=== PATIENT | male | born 1950 | race Caucasian/White ===

== ENCOUNTER 2016-10-19 09:03 | Emergency (ER) | payer MEDICARE, OTHER ==
[~2016-10-19] VITALS: Ht 193 cm; Wt 95.5 kg
[~2016-10-19 09:03] MED LIST: AMLO10TA3 PO; ATOR20TA PO; Aspirin-Expunged Drug, Do Not Renew! PO; CHOL10008 PO; HYDR-3797 PO; LISI10TA PO; MULT-1018 PO; OXYC-466 PO; OXYC5TAB72 PO; RANI150C4 PO
[2016-10-19 09:09] VITALS: BP 123/75; RESP 14; O2SAT 98
--- NOTE | 2016-10-19 09:19 | ED.REPORT ---
HPI-Facial Injury Date of Service Oct 19, 2016 ED Provider: Dr. Mejias 66 y/o male on Aspirin with a hx of HTN presents to the ED complaining of intermittent epistaxis every hour for the last 4 days. The pt has been swallowing blood. He went to urgent care yesterday, where he was given Afrin and a rhinorocket that he sneezed out. In the ED, the pt has a Kleenex in his nose and is not currently bleeding. He has an appointment with ENT in three days but could not tolerate the sx so came to the ED instead. The pt is not taking any antibiotics and did not take Aspirin this morning. Nursing Notes Stated Complaint: NOSE BLEED/ BLOOD THINNERS Chief Complaint: ENT & Mouth Nursing Notes Reviewed: Yes Allergies: Coded Allergies: NSAIDS (Non-Steroidal Anti-Inflamma (Verified Adverse Reaction, Severe, Only has one kidney -- impaired renal function, 08/19/15) Scheduled ([Aspirin-Expunged Drug, Do Not Renew!]) 325 MG TABLET 325 MG PO BID Take twice a day for 6 weeks after surgery Amlodipine (Amlodipine) 10 Mg Tablet 10 MG PO DAILY Atorvastatin (Lipitor) 20 Mg Tablet 20 MG PO DAILY Cholecalciferol (Vitamin D3) (Vitamin D3) 1,000 Unit Tab.chew 1,000 UNIT PO DAILY Lisinopril (Lisinopril) 10 Mg Tablet 10 MG PO DAILY Multivitamin (Multi Vitamin Daily) 1 Each Tablet 1 EACH PO DAILY Ranitidine (Ranitidine) 150 Mg Capsule 150 MG PO BID Scheduled PRN Hydroxyzine Pamoate (HydrOXYzine Pamoate) 25 Mg Capsule 25 MG PO Q4H PRN PRN For Spasm and/or Restlessness oxyCODONE (oxyCODONE) 5 Mg Tablet 5-10 MG PO Q4H PRN PRN For Severe Pain oxyCODONE-Acetaminophen 10-325 mg (oxyCODONE-Acetaminophen 10-325 mg) 1 Each Tablet 1-2 TAB PO Q4H PRN PRN For Pain General Time Seen by Provider: 09:19 Chief Complaint Other (epistaxis) Hx Obtained From: Patient Arrived By: Walk-in Onset Occurred: 4 days ago Symptom Duration: Intermittent Progression Since Onset: Unchanged Severity: Current: No pain currently Severity: Maximum: No pain Recent Healthcare: Recent doctor visit Similar Sx Previous: No Past Medical History Past Medical History Arhtritis Reports: GERD, Hyperlipidemia, Hypertension Past Surgical History arthroscopic surgery to the knee nephrectomy Smoking History Current Every Day Smoker Ambulatory Status Independent Review of Systems Ears / Nose / Throat: Reports: Nose bleeding Complete sys rev & neg: except as marked. Physical Exam Initial Vital Signs Vital Signs (First) Date Time Temp Pulse Resp B/P Pulse Ox O2 Delivery O2 Flow Rate FiO2 10/19/16 09:09 36.9 80 14 123/75 98 Room Air Initial VS: Reviewed Respiratory: No respiratory distress Cardiovascular: Regular rate & rhythm Extremities: Vascular intact, Neuro intact, No swelling, No tenderness Skin: Warm, Dry, No cyanosis Head / Eyes: Atraumatic, Normocephalic ENT: Atraumatic, Airway patent, Mucous membranes moist Kleenex in left nare and nasal bridge across. No active bleeding when removed. No blood in oropharynx. Neck: Atraumatic, Supple, Full range of motion Neurologic: Oriented X3, Speech NL, No motor deficits, No sensory deficits General/Constitutional: Awake, Alert Re-Eval/Medical Decision Med Decision/Clinical Course Med Decision/Clinical Course: Patient declined nasal packing. No active bleeding in the ER. Return and follow-up precautions given. Re-Evaluation/Progress #1: Time of Eval: 09:55 Re-Evaluation/Progress Note: Rechecked pt. The bleeding has stopped. He refused packing placement. Informed the pt of the plan to call ENT. He understands. All questions answered. Re-Evaluation/Progress #2: Time of Eval: 10:07 Re-Evaluation/Progress Note: Rechecked pt. He continues to deny nasal packing. Discussed diagnosis and plan to discharge. Pt understands and agrees with the plan. F/U instructions and RTER warning given. All questions addressed. Consultation : Referral / Consult Name: Ga De La Rosa MD Consulted With: ENT Call Returned at: 09:59 Conduit Worker: Will see in office, Agrees with eval, Agrees with plan Note: Dr. De La Rosa states he will see the patient later this week if he accepts packing with Merocel and will see him sooner if he denies packing and opts for OTC glycerine and saline gel instead. Counseled Regarding: Diagnosis, Need for follow-up, When/why to return to ED Discharge & Departure Impression: Primary Impression: Epistaxis Disposition: Home Discharge Condition All VS Reviewed: Yes Condition: Stable Patient Instructions: Nosebleed (ED) Additional Instructions: Thank you for entrusting us with your care today. We have spoken to the ear nose and throat today. He suggests lying and over-the -counter glycerin/saline gel. Some of the brand names are "Nose Better "and "AYR." Apply a small dollop up the pugh followed by a cotton plug 6 times a day. We spoke with the firearms sales associate today, they suggest coming into the office if you rebleed and cannot stop. If you rebleed, apply Afrin and your nasal clamp, if you continue to bleed for greater than 15 minutes you should call ENT or come to the ER. Referrals: Iam Chi MD (PCP) Ga De La Rosa MD Attestation Portions of this note were transcribed by David Miller. I,, personally performed the history, physical exam and medical decision-making;I reviewed and confirmed the accuracy of the information in the transcribed note. Signed by Nancy Latif. 10/19/16 11:16 copies to: Ga De La Rosa MD; Iam Chi MD, Timothy S DO Oct 19, 2016 09:19 David Miller Oct 19, 2016 09:42
[2016-10-19 10:21] VITALS: BP 120/76; PULSE 74; RESP 16; O2SAT 98
== END 2016-10-19 10:22 | disposition home or self-care (01) ==
LOC: SED 09:03
DX: R04.0 Epistaxis (principal); I10 Essential (primary) hypertension; K21.9 Gastro-esophageal reflux disease without esophagitis; E78.5 Hyperlipidemia, unspecified; F17.200 Nicotine dependence, unspecified, uncomplicated; Z79.82 Long term (current) use of aspirin; Z79.899 Other long term (current) drug therapy